=== PATIENT | male | born 1980 | race Caucasian/White ===

== ENCOUNTER 2018-11-01 16:43 | Emergency (ER) | payer MEDICAID ==
[~2018-11-01] VITALS: Ht 160 cm; Wt 65.8 kg
[2018-11-01 16:50] VITALS: Ht 160 cm; Wt 65.8 kg
[2018-11-01] MEDS ORDERED: SOD CHLORIDE 0.9% 1,000 ML IV STA (22:46)
[2018-11-01] MEDS ORDERED: HYDR-4011 PO (22:51)
--- NOTE | 2018-11-01 23:00 | ERD ---
ER Documentation Chief Complaint Chief Complaint R foot pain x 1 mos with swelling; has hx of gout HPI Patient is a 38-year-old male with a history of gout who presents the ER for concerns of right foot pain times 1 month. Patient states initially was diagnosed with gout in his right big toe. Patient states now he is having pain and swelling in his right ankle. Patient states he was unable to walk yesterday due to the pain however today he was able to walk. Patient states he is taking a medication called Febuxostat, which is from the [facility]. He states this medication is for gout. Patient states he initially was told to take it every day however he is only been taking it every other day. Patient denies any fevers or chills. Patient denies any falls or trauma. Patient is able to bear weight on the affected extremity. Patient states his been taking ibuprofen daily for his pain. ROS All systems reviewed and are negative except as per history of present illness. Medications Home Meds Active Scripts Hydrocodone/Acetaminophen (Hartford 5-325 Tablet) 1 Each Tablet, 1 TAB PO Q6H PRN for PAIN, #10 TAB Prov:LONI URENA PA-C 11/01/18 Allergies Allergies: Coded Allergies: No Known Allergy (Unverified , 11/01/18) PMhx/Soc Medical and Surgical Hx: pt denies Surgical Hx Hx Alcohol Use: No Hx Substance Use: No Hx Tobacco Use: No Smoking Status: Never smoker FmHx Family History: diabetes Physical Exam Vitals Vital Signs Date Temp Pulse Resp B/P (MAP) Pulse Ox O2 O2 Flow FiO2 Time Delivery Rate 11/02/18 98.2 74 20 117/73 97 Room Air 00:12 (88) 11/01/18 98.1 95 20 101/67 99 16:50 (78) Physical Exam GENERAL: Well-developed, well-nourished male. Appears in no acute distress. HEAD: Normocephalic, atraumatic. EYES: Pupils are equally reactive bilaterally. EOMs grossly intact. No conjunct ival erythema. ENT: Moist mucous membranes. No uvula deviation. No kissing tonsils. NECK: Supple. No meningismus. Normal range of motion of the neck. LUNG: Clear to auscultation bilaterally. No rhonchi, wheezing, rales or coarse breath sounds. HEART: Regular rate and rhythm. No murmurs, rubs or gallops. EXTREMITIES: Equal pulses bilaterally. No peripheral clubbing, cyanosis or edema. No unilateral leg swelling. NEUROLOGIC: Alert and oriented. Moving all four extremities without any difficulty. Normal speech. Steady gait. SKIN: Normal color. Warm and dry. No rashes or lesions. RLE: No obvious deformity. Mild swelling noted on the lateral and medial ankle. No warmth. No redness. Streaking. Skin intact. Normal range of motion of the ankle. Sensation intact to light touch. Neurovascularly intact. (Able to plantarflex, dorsiflex, nader foot, invert foot, raise big toe.) 2+ DP and DT pulses. Result Diagram: 11/01/18215411/01/182154 Results 24 hrs Laboratory Tests Test 11/01/18 21:55 White Blood Count 9.6 10^3/ul Red Blood Count 4.05 10^6/ul Hemoglobin 12.7 g/dl Hematocrit 38.5 % Mean Corpuscular Volume 95.1 fl Mean Corpuscular Hemoglobin 31.4 pg Mean Corpuscular Hemoglobin Concent 33.0 g/dl Red Cell Distribution Width 12.1 % Platelet Count 315 10^3/UL Mean Platelet Volume 8.9 fl Immature Granulocytes % 0.500 % Neutrophils % 64.0 % Lymphocytes % 23.9 % Monocytes % 7.1 % Eosinophils % 3.7 % Basophils % 0.8 % Nucleated Red Blood Cells % 0.0 /100WBC Immature Granulocytes # 0.050 10^3/ul Neutrophils # 6.2 10^3/ul Lymphocytes # 2.3 10^3/ul Monocytes # 0.7 10^3/ul Eosinophils # 0.4 10^3/ul Basophils # 0.1 10^3/ul Nucleated Red Blood Cells # 0.0 10^3/ul Sodium Level 142 mmol/L Potassium Level 4.0 mmol/L Chloride Level 106 mmol/L Carbon Dioxide Level 25 mmol/L Anion Gap 11 Blood Urea Nitrogen 27 mg/dl Creatinine 2.17 mg/dl Est Glomerular Filtrat Rate mL/min 34 mL/min Glucose Level 93 mg/dl Uric Acid 11.7 mg/dl Calcium Level 9.9 mg/dl Total Bilirubin 0.1 mg/dl Direct Bilirubin 0.00 mg/dl Indirect Bilirubin 0.1 mg/dl Aspartate Amino Transf (AST/SGOT) 24 IU/L Alanine Aminotransferase (ALT/SGPT) 7 IU/L Alkaline Phosphatase 75 IU/L Total Protein 8.8 g/dl Albumin 4.3 g/dl Globulin 4.50 g/dl Albumin/Globulin Ratio 0.95 Current Medications Medications Dose Sig/Louie Start Time Status Last (Trade) Ordered Route PRN Stop Time Admin Dose Reason Admin Sodium 1,000 ml @ Q1H STAT 11/01/18 DC 11/01/18 Chloride 1,000 mls/hr IV 22:46 23:13 11/01/18 23:45 Procedures/MDM ED COURSE: The patient was stable throughout ED course. I kept the patient and/or family informed of laboratory and diagnostic imaging results throughout the ED course. DIAGNOSTIC IMAGING: Read by radiologist. DIAGNOSTIC IMAGING REPORT Patient: SERG MICHAEL : 1980 Age: 38 Sex: M MR #: [id number] DOS: 11/01/182111 Ordering MD: LONI URENA PA-C Location: [facility] Room/Bed: PROCEDURE: XR Ankle. CLINICAL INDICATION: Pain TECHNIQUE: AP, oblique and lateral views of the right ankle were performed. COMPARISON: None. FINDINGS: There is normal mineralization and alignment. No fracture or osseous lesion is identified. The joints are normal. There is soft tissue swelling lateral to lateral malleolus. RPTAT: AA IMPRESSION: Soft tissue swelling lateral to the lateral malleolus with no acute fracture. .Adam Bender MD, MD Date Time Electronically viewed and signed by .Adam Bender MD, on 11/01/2018 22:04 .S/ CC: LONI URENA PA-C [id number] Patient: SERG MICHAEL : 1980 Age: 38 Sex: M MR #: [id number] DOS: 11/01/182111 Ordering MD: LONI URENA PA-C Location: [facility] Room/Bed: PROCEDURE: US Lower extremity Venous. CLINICAL INDICATION: Right leg edema TECHNIQUE: Multiple sonographic images of the right lower extremity deep venous system was obtained utilizing grayscale, color-flow, compressive sonography and doppler imaging with augmentation. The images were reviewed on a PACS workstation. COMPARISON: None. FINDINGS: There is normal compressibility and flow within the right common femoral, femoral, posterior tibial, peroneal and popliteal veins. RPTAT: AA IMPRESSION: No sonographic evidence for deep venous thrombosis. .Adam Bender MD, MD Date Time Electronically viewed and signed by .Adam Bender MD, MD on 11/01/2018 21:45 .S/ CC: LONI URENA PA-C [id number]' DIAGNOSTIC IMAGING REPORT Patient: SERG MICHAEL : 1980 Age: 38 Sex: M MR #: [id number] DOS: 11/01/182111 Ordering MD: LONI URENA PA-C Location: [facility] Room/Bed: PROCEDURE: XR Foot. CLINICAL INDICATION: pain TECHNIQUE: AP, lateral and oblique views of the right foot was obtained. The images were reviewed on a PACS workstation. COMPARISON: None. FINDINGS: The bones of the foot appear intact, with no evidence of acute fracture, dislocation, or subluxation. The joint spaces are preserved. Bone mineralization is normal. No significant soft tissue swelling is seen. RPTAT: AA IMPRESSION: Unremarkable right foot radiographs. .Adam Bender MD, MD Date Time Electronically viewed and signed by .Adam Bender MD, MD on 11/01/2018 22:04 .S/ CC: LONI URENA PA-C [id number] PROCEDURES: None. MEDICATIONS GIVEN: IV fluids MEDICAL DECISION MAKING: This is a 38-year-old male with a past medical history of gout presents the ER for concerns of right foot pain times 1 month. Patient denied falls or trauma. Patient states initially his gout was localized to his right big toe however now he has developed right ankle pain and swelling.. Vital signs were reviewed. Patient was afebrile. X-ray imaging of the right foot and ankle are unremarkable. Doppler ultrasound of the right lower extremity was unremarkable. No evidence of DVT. Blood work was obtained. CBC showed no WBC count. Hemoglobin hematocrit noted to be slightly decreased however no evidence of severe anemia. CMP did show elevated BUN of 27, creatinine of 2.17, GFR of 34. AST ALT within normal limits.. Glucose level within normal limits. Uric acid was noted to be 11.7. Case was discussed with supervising physician Dr. Chou. He reviewed the patient's blood work. Patient has acute kidney injury. Patient was given IV fluids. There is no indication for admission at this time per Dr. Chou. Patient was advised to drink plenty of fluids and follow-up with his primary care physician in 2-3 days for recheck of blood work. At this time, the patient presentation is most consistent with a gout flareup and acute renal injury. Low suspicion for fracture, dislocation, DVT, septic joint or compartment syndrome. Patient was nontoxic, [id number] prior to discharge. Patient was advised to avoid NSAIDs given that his creatinine/BUN is elevated. Patient will be given prescription for Hartford for pain. PRESCRIPTIONS: Hartford The patient has been prescribed Hartford during this encounter. The patient has been warned about the use of narcotics. The patient should not drive or operate heavy machinery while taking this medication. The patient was also warned about the addictive properties of narcotic medications. Narcan prescription was NOT provided given the following criteria: No more than 10 tablets of Hartford 5 mg were prescribed. Patient does not have concomitant opiate and benzodiazepine prescriptions use . There was no obvious evidence of prior history of opiate abuse or abuse DISCHARGE: At this time, patient is stable for discharge and outpatient management. RICE therapy and ROM exercises were advised to avoid stiffness. I have instructed the patient to follow-up with his/her primary care physician in 1-2 days. I have discussed with the patient the possibility of needing to see an video production specialist for further workup and imaging if the pain persists. I have instructed the patient to promptly return to the ER for any new or worsening symptoms including increased pain, swelling, redness, warmth or fever. The patient and/or family expressed understanding of and agreement with this plan. All questions were answered. Home care instructions were provided. Disclaimer: Inadvertent spelling and grammatical errors are likely due to [employer]/dictation software use and do not reflect on the overall quality of patient care. Also, please note that the electronic time recorded on this note does not necessarily reflect the actual time of the patient encounter. Departure Diagnosis: Primary Impression: Acute renal injury Additional Impressions: Swelling of right foot Gout Gout site: unspecified site Gout etiology: unspecified cause Chronicity: unspecified Qualified Codes: M10.9 - Gout, unspecified Condition: Fair Patient Instructions: Treating Gout Attacks, Renal Insufficiency Referrals: [facility] YOU HAVE RECEIVED A MEDICAL SCREENING EXAM AND THE RESULTS INDICATE THAT YOU DO NOT HAVE A CONDITION THAT REQUIRES URGENT TREATMENT IN THE EMERGENCY DEPARTMENT. FURTHER EVALUATION AND TREATMENT OF YOUR CONDITION CAN WAIT UNTIL YOU ARE SEEN IN YOUR DOCTORS OFFICE WITHIN THE NEXT 1-2 DAYS. IT IS YOUR RESPONSIBILITY TO MAKE AN APPOINTMENT FOR FOLOW-UP CARE. IF YOU HAVE A PRIMARY DOCTOR --you should call your primary doctor and schedule an appointment IF YOU DO NOT HAVE A PRIMARY DOCTOR YOU CAN CALL OUR PHYSICIAN REFERRAL HOTLINE AT IF YOU CAN NOT AFFORD TO SEE A PHYSICIAN YOU CAN CHOSE FROM THE FOLLOWING [facility] [address] [facility]. [facility] [address] [facility]. [facility] [address] [facility] [facility] [address] [facility]. [facility] [address] [facility]. [facility]. [address] [facility] YOU HAVE RECEIVED A MEDICAL SCREENING EXAM AND THE RESULTS INDICATE THAT YOU DO NOT HAVE A CONDITION THAT REQUIRES URGENT TREATMENT IN THE EMERGENCY DEPARTMENT. FURTHER EVALUATION AND TREATMENT OF YOUR CONDITION CAN WAIT UNTIL YOU ARE SEEN IN YOUR DOCTORS OFFICE WITHIN THE NEXT 1-2 DAYS. IT IS YOUR RESPONSIBILITY TO MAKE AN APPOINTMENT FOR FOLOW-UP CARE. IF YOU HAVE A PRIMARY DOCTOR --you should call your primary doctor and schedule and appointment IF YOU DO NOT HAVE A PRIMARY DOCTOR YOU CAN CALL OUR PHYSICIAN REFERRAL HOTLINE AT . IF YOU CAN NOT AFFORD TO SEE A PHYSICIAN YOU CAN CHOSE FROM THE FOLLOWING [facility] INSTITUTIONS: [facility] [address] [place] [address] [facility] [address] [place] [address] [facility] [address] [place] [address] Additional Instructions: Drink plenty of fluids. Stay hydrated. Follow up with your primary care physician. Recheck a creatinine level advised in 2-3 days. DO NOT TAKE ANY NSAIDS. Call your primary care doctor TOMORROW for an appointment during the next 1-2 days.See the doctor sooner or return here if your condition worsens before your appointment time. LONI URENA PA-C Nov 01, 2018 23:00
[2018-11-02 00:12] VITALS: BP 117/73; PULSE 74; RESP 20
== END 2018-11-02 00:14 | disposition home or self-care (01) ==
LOC: FTE 16:43
DX: N17.9 Acute kidney failure, unspecified (principal); R22.41 Localized swelling, mass and lump, right lower limb; M10.9 Gout, unspecified
CPT/HCPCS: 73610; 73630; 80053; 84560; 85025; 93971; J7030